=== PATIENT | female | born 1960 | race Two or more races ===

== ENCOUNTER → 2018-02-25 | Outpatient (CLI) | payer OTHER | END | disposition home or self-care (01) | LOC: HKI 10:05 | DX: M17.12 Unilateral primary osteoarthritis, left knee (principal); G35 Multiple sclerosis | CPT/HCPCS: 73564; 73564-LT ==

== ENCOUNTER → 2018-03-11 | Outpatient (CLI) | payer OTHER | END | disposition home or self-care (01) | LOC: HKI 09:12 | DX: M25.562 Pain in left knee (principal); G35 Multiple sclerosis | CPT/HCPCS: 20610 ==

== ENCOUNTER → 2018-06-17 | Outpatient (CLI) | payer OTHER | END | disposition home or self-care (01) | LOC: HKI 10:45 | DX: M17.12 Unilateral primary osteoarthritis, left knee (principal) | CPT/HCPCS: 73564; 73564-LT ==

== ENCOUNTER → 2018-10-01 | Outpatient (CLI) | payer OTHER | END | disposition home or self-care (01) | LOC: HKI 13:38 | DX: M17.12 Unilateral primary osteoarthritis, left knee (principal); M25.562 Pain in left knee; G35 Multiple sclerosis | CPT/HCPCS: 73564; 73564-LT ==

== ENCOUNTER → 2018-10-22 | Outpatient (CLI) | payer OTHER | END | disposition home or self-care (01) | LOC: HKI 13:58 | DX: M76.52 Patellar tendinitis, left knee (principal); M25.562 Pain in left knee | CPT/HCPCS: Z7500 ==

== ENCOUNTER → 2018-11-19 | Outpatient (CLI) | payer OTHER | END | disposition home or self-care (01) | LOC: HKI 15:37 | DX: M79.4 Hypertrophy of (infrapatellar) fat pad (principal); E88.89 Other specified metabolic disorders; M25.562 Pain in left knee | CPT/HCPCS: Z7500 ==